=== PATIENT | male | born 1985 | race Caucasian/White ===

== ENCOUNTER 2024-02-13 19:42 | Emergency (ER) | payer SELFPAY ==
[2024-02-13] MEDS: Aspirin 81 MG Tab.Chew PO ONE (20:00)
[2024-02-13] MEDS: Ondansetron 4 MG/2 ML SDV IVPUSH ONE (20:00)
[2024-02-13] MEDS: Sodium Chloride 0.9% 2.5 ML Syringe FLUSH PRN (20:01)
[2024-02-13] MEDS: Sodium Chloride 0.9% 10 ML Syringe FLUSH PRN (20:01)
[2024-02-13] MEDS: Morphine 4 MG/ML Syringe IVPUSH ONE (20:01)
[2024-02-13] MEDS: Sodium Chloride 0.9% 1,000 ML IV ONE (20:02)
[2024-02-13 20:03] LABS: BASOPHILS ABSOLUTE AUTO 0.02 K/uL (0.00-0.20); BASOPHILS PERCENT AUTO 0.2 % (0.0-1.0); EOSINOPHILS ABSOLUTE AUTO 0.13 K/uL (0.00-0.45); EOSINOPHILS PERCENT AUTO 1.3 % (0.0-6.0); HEMATOCRIT 47.2 % (42.0-52.0); HEMOGLOBIN 15.9 g/dL (14.0-18.0); IMMATURE GRAN ABSOLUTE AUTO 0.03 K/uL (0.00-0.05); IMMATURE GRAN PERCENT AUTO 0.3 % (0.0-0.4); LYMPHOCYTES ABSOLUTE AUTO 2.29 K/uL (1.00-4.80); LYMPHOCYTES PERCENT AUTO 22.5 % (24.0-44.0); MEAN CORPUSCULAR HEMOGLOBIN 29.3 pg (28.0-32.0); MEAN CORPUSCULAR HGB CONC 33.7 g/dL (32.0-36.0); MEAN CORPUSCULAR VOLUME 86.9 fL (83.0-99.0); MEAN PLATELET VOLUME 9.5 fL (9.4-12.4); MONOCYTES ABSOLUTE AUTO 0.58 K/uL (0.00-0.80); MONOCYTES PERCENT AUTO 5.7 % (0.0-8.0); NEUTROPHILS ABSOLUTE AUTO 7.15 K/uL (1.80-7.70); PLATELET COUNT,PLT 296 K/uL (150-400); RED BLOOD CELL COUNT 5.43 M/uL (4.52-5.90)
[2024-02-13 20:24] LABS: A/G RATIO 0.9 (0.9-1.6); ALANINE AMINOTRANSFERASE,ALT 38 IU/L (14-63); ALBUMIN 3.6 g/dL (3.4-5.0); ALKALINE PHOSPHATASE 96 U/L (46-116); ASPARTATE AMNIOTRANSFERASE,AST 23 IU/L (15-37); BILIRUBIN TOTAL 0.4 mg/dL (0.2-1.0); BLOOD UREA NITROGEN,BUN 18 mg/dL (7.0-18.0); CARBON DIOXIDE,CO2 27.1 mmol/L (21.0-32.0); CHLORIDE,CL 104 mmol/L (98-107); CREATININE 1.8 mg/dL (0.8-1.3); GLUCOSE RANDOM 183 mg/dL (74-106); POTASSIUM,K 3.7 mmol/L (3.5-5.1); PROTEIN TOTAL,TP 7.4 g/dL (6.4-8.2); SODIUM,NA 142 mmol/L (136-148)
[2024-02-13 20:28] LABS: ESTIMATED GFR 48 mL/min (>60)
[2024-02-13 21:16] LABS: CORONAVIRUS COVID-19 NAA NEGATIVE (NEGATIVE); INFLUENZA A NAA NEGATIVE (NEGATIVE); INFLUENZA B NAA NEGATIVE (NEGATIVE)
[2024-02-13] MEDS: Ketorolac 30 MG/ML SDV IVPUSH ONE (21:55)
== END 2024-02-13 23:32 | disposition home or self-care (01) ==
LOC: MW.ED 19:42
DX: R07.2 Precordial pain (principal); R51.9 Headache, unspecified; I50.9 Heart failure, unspecified; Z88.0 Allergy status to penicillin; Z87.891 Personal history of nicotine dependence; Z75.8 Other problems related to medical facilities and other health care
CPT/HCPCS: 0240U; 36415; 70450; 71045; 80053; 83880; 84443; 84484; 85025; 85379; 93005; 96361; 96374; 96375; 99285; A9270; J1885; J2270; J2405; J3490; J7030; 93010; 99283

== ENCOUNTER 2024-12-24 18:51 | Emergency (ER) | payer SELFPAY | END 2024-12-24 22:06 | disposition home or self-care (01) | LOC: MW.ED 18:51 | DX: M79.601 Pain in right arm (principal); I50.9 Heart failure, unspecified; F17.210 Nicotine dependence, cigarettes, uncomplicated; Z75.8 Other problems related to medical facilities and other health care; Z88.0 Allergy status to penicillin; Z88.2 Allergy status to sulfonamides; Z79.899 Other long term (current) drug therapy; X50.0XXA Overexertion from strenuous movement or load, initial encounter; Y93.89 Activity, other specified | CPT/HCPCS: 73030-26-RT; 73030-RT; 73080-26-RT; 73080-RT; 73110-26-RT; 73110-RT; 99283 ==